=== PATIENT | male | born 1950 | race Caucasian/White ===

== ENCOUNTER 2021-01-19 11:41 | Observation (INO) | payer OTHER ==
[~2021-01-19] VITALS: Ht 172.7 cm; Wt 79.9 kg
[2021-01-19 12:30] VITALS: BP 112/76
[2021-01-19] MEDS ORDERED: ASPI81TA45 PO (12:33)
[2021-01-19] MEDS ORDERED: LISI2.5T PO (12:33)
[2021-01-19] MEDS ORDERED: METO-93 PO (12:33)
[2021-01-19] MEDS ORDERED: CLOP75TA52 PO (12:33)
[2021-01-19] MEDS ORDERED: ATOR-2 PO (12:33)
[2021-01-19] MEDS ORDERED: SPIR25TA5 PO (12:33)
[2021-01-19] MEDS ORDERED: CEFAZOLIN 1,000 MG ONE (12:48)
[2021-01-19] MEDS ORDERED: LIDOCAINE 2%, 20ML ONE (12:48)
[2021-01-19] MEDS ORDERED: MIDAZOLAM 1 MG/ML, 2ML ONE (12:49)
[2021-01-19] MEDS ORDERED: CEFAZOLIN PMX 1GM/50ML 50 ML ONE ×2 (12:49→12:54)
[2021-01-19] MEDS ORDERED: FENTANYL PF 100 MCG/2ML ONE (12:50)
[2021-01-19] MEDS ORDERED: SODIUM CHLORIDE 0.9% 1,000 ML IV SCH (13:00)
[2021-01-19 13:12] LABS: BASOPHILS % (AUTO) 1 % (0-1); EOSINOPHILS % (AUTO) 2 % (1-7); LYMPHOCYTES % (AUTO) 27 % (22-44); MEAN PLATELET VOLUME 7.8 fL (7.4-10.4); MONOCYTES % (AUTO) 9 % (2-9); NEUTROPHILS % (AUTO) 62 % (42-75); PLATELET COUNT 204 x10^3/uL (130-400); RED BLOOD COUNT 5.17 x10^6/uL (4.38-5.82); RED CELL DISTRIBUTION WIDTH 14.7 % (9.4-14.8)
[2021-01-19 13:19] LABS: ANION GAP 3 mmol/L (5-15); CALCIUM 8.8 mg/dL (8.5-10.1); CHLORIDE 111 mmol/L (98-107); CREATININE 0.66 mg/dL (0.7-1.3)
[2021-01-19 13:25] LABS: INTERNATIONAL NORMALIZED RATIO 1.1 (0.93-1.1); PROTHROMBIN TIME 11.7 Seconds (9.6-11.5)
[2021-01-19] MEDS ORDERED: HOLD MEDICATION MC PRN (14:00)
[2021-01-19] MEDS ORDERED: HYDROcodone/APAP 5/325 TABLET PO PRN (14:00)
[2021-01-19] MEDS ORDERED: ZOLPIDEM 5MG TABLET PO PRN (14:00)
[2021-01-19] MEDS ORDERED: ONDANSETRON 2MG/ML, 2ML IV PRN (14:00)
[2021-01-19] MEDS ORDERED: ACETAMINOPHEN 325 MG TABLET PO PRN (14:00)
[2021-01-19 14:30] VITALS: BP 98/64
[2021-01-19 20:22] VITALS: BP 107/71
[2021-01-19] MEDS ORDERED: METOPROLOL SUCCINATE 50 MG TAB.ER.24H PO SCH (21:00)
[2021-01-19] MEDS: SODIUM CHLORIDE FLUSH 10ML SYR IVF SCH (21:00)
[2021-01-19] MEDS ORDERED: ATORVASTATIN 80 MG TABLET PO SCH (21:00)
[2021-01-20 00:35] VITALS: BP 91/60
[2021-01-20 07:00] VITALS: BP 101/66
[2021-01-20] MEDS ORDERED: ACET325T26 PO (08:46)
[2021-01-20] MEDS ORDERED: LISINOPRIL 5 MG TABLET PO SCH (09:00)
[2021-01-20] MEDS ORDERED: ASPIRIN 81 MG TABLET EC PO SCH (09:00)
[2021-01-20] MEDS ORDERED: SPIRONOLACTONE 25 MG TABLET PO SCH (09:00)
[2021-01-20] MEDS: SODIUM CHLORIDE FLUSH 10ML SYR IVF SCH (09:00)
== END 2021-01-20 13:30 | disposition home or self-care (01) ==
LOC: CACL 11:41 → ORIP 13:55 → 5SO 14:06
PROVIDERS: ADMIT Internal Medicine Clinical Cardiac Electrophysiology; ATTEND Internal Medicine Clinical Cardiac Electrophysiology
DX: I50.22 Chronic systolic (congestive) heart failure (principal); I25.9 Chronic ischemic heart disease, unspecified; Z45.02 Encounter for adjustment and management of automatic implantable cardiac defibrillator; Z79.899 Other long term (current) drug therapy; Z95.810 Presence of automatic (implantable) cardiac defibrillator
CPT/HCPCS: 33249; 36415; 71045; 80048; 85025; 85610; 93005; 99156; 99157; C1722; C1892; C1895; G0378; J0690; J2250; J3010; J3490